=== PATIENT | male | born 1990 | race Caucasian/White ===

== ENCOUNTER 2019-09-26 16:02 | Emergency (ER) | payer MEDICAID ==
[~2019-09-26] VITALS: Ht 170.2 cm; Wt 100.0 kg
[2019-09-26] MEDS ORDERED: LORAZEPAM 2MG/ML CPJ IV ONE (18:00)
[2019-09-26] MEDS ORDERED: CEFAZOLIN 1000MG PREMIX 50 ML IV ONE (18:30)
[2019-09-26] MEDS ORDERED: LIDOCAINE HCL/EPINEPHRINE 1%-EPI 1:100,000 20 ML VIAL INFIL ONE (18:30)
[2019-09-26] MEDS ORDERED: LIDOCAINE HCL/EPINEPHRINE 1%-EPI 1:100,000 20 ML VIAL ONE (22:56)
[2019-09-27] MEDS ORDERED: MORPHINE SULFATE 10 MG/ML CPJ IV ONE (00:30)
[2019-09-27] MEDS ORDERED: LIDOCAINE HCL 1% 20ML VIAL (Pyxis) INJ ONE (00:30)
[2019-09-27] MEDS ORDERED: LIDOCAINE HCL 1% 20ML VIAL (Pyxis) INJ INFIL ONE (01:15)
[2019-09-27 01:55] VITALS: BP 143/76
== END 2019-09-27 01:59 | disposition home or self-care (01) ==
LOC: ER 16:02
DX: S01.551A Open bite of lip, initial encounter (principal); S01.25XA Open bite of nose, initial encounter; E11.9 Type 2 diabetes mellitus without complications; F32.9 Major depressive disorder, single episode, unspecified; F12.10 Cannabis abuse, uncomplicated; F10.129 Alcohol abuse with intoxication, unspecified; Y90.9 Presence of alcohol in blood, level not specified; W54.0XXA Bitten by dog, initial encounter; Y93.89 Activity, other specified; Y92.488 Other paved roadways as the place of occurrence of the external cause
CPT/HCPCS: 12014; 96365; 96375; 99284; J0690; J2270; J3490